=== PATIENT | male | born 1970 | race Caucasian/White ===

== ENCOUNTER 2019-10-19 00:39 | Outpatient (CLI) | payer BC, SELFPAY ==
[2019-10-19 19:34] LABS: SARS-CoV-2 RNA PCR Negative
== END 2019-10-19 00:40 | disposition home or self-care (01) ==
LOC: ANHCOVIDDT 00:40
PROVIDERS: PCP Family Medicine; Visit Provider Orthopaedic Surgery
DX: Z01.812 Encounter for preprocedural laboratory examination (principal); Z11.59 Encounter for screening for other viral diseases
CPT/HCPCS: 87635; C9803; U0003

== ENCOUNTER 2019-10-21 02:22 | Day surgery (SDC) | payer BC, SELFPAY ==
[2019-10-13 11:58] VITALS: BMI 37.5
--- NOTE | 2019-10-16 14:20 | PM.IMHP ---
H&P: HPI History of Present Illness Date/Time: 10/16/19 14:20 Chief complaint: Left Medial Meniscus Tear Narrative: Luann Verde is a 49 year old male Who presents with left knee pain chronic in nature. The patient has pain with twisting or turning squatting kneeling going up and down stairs. He can not stand or walk for long periods. Patient reports occasional mechanical symptoms aching and pain medially worse with activity somewhat relieved by rest. States he does get some swelling and puffiness in the left knee. Despite cortisone therapy and anti-inflammatories as symptoms continue. An MRI scan that was done was initially read as negative however Dr. Kim reviewed the MRI and discussed this in detail with the radiologist and they agree that the patient does have a medial meniscal tear. The only other significant finding is a tiny knee joint effusion and mild lateral patellar tilt. At this point the patient's discuss further treatment options in detail with Dr. Kim he has failed a long course of conservative measures he would now like to proceed with knee arthroscopy. Review of Systems Review of Systems: All systems reviewed & are unremarkable except as noted in HPI and below PMFSH Social History Social History Smoking status: Never smoker Alcohol intake: former Substance use: never Gender identity (if verbalized by the patient): Male Spiritual care concerns: No Meds Home Medications and Allergies Home Medications Medication Instructions Recorded Confirmed Type atorvastatin 20 mg PO DAILY 10/13/19 10/13/19 History omega 4-xeq-afy-fish oil [Fish Oil] 1 cap PO BID 10/13/19 10/13/19 History phentermine 30 mg PO DAILY 10/13/19 10/13/19 History Allergies Allergy/AdvReac Type Severity Reaction Status Date / Time Penicillins Allergy Hives Verified 10/13/19 11:59 Exam Narrative: Exam Narrative: The patient is noted be a well-developed well-nourished male no acute distress. He is alert and oriented x3. Normal mood and affect. Hearing and vision intact. HEENT exam within normal limits. Heart regular rate rhythm. Lungs clear auscultation. Abdomen benign. Extremities showed the patient's left knee to be painful with manipulation range of motion. He has tenderness on the medial joint line with a positive Nisa exam negative Leatha knee joint is otherwise stable strength is 5/5. There is mild knee joint effusion. Full range of motion pain with extremes of motion is noted. Neurovascular is intact. Skin is intact. MRI scan is as above. Central nervous system exam within normal limits. Assessment and Plan Additional Plan by MRI and exam the patient is noted to have a medial meniscal tear left knee. The patient has discussed risks benefits limitations and alternatives to surgery in great detail with Dr. Kim he is now ready to proceed with a left knee arthroscopy partial medial meniscectomy proceed as indicated. the patient is scheduled to go surgery 10/21/[address] [facility] Dr. Kim. The patient voiced understanding and agrees with the above plan.
[2019-10-21] VITALS (8 sets, daily range): BP systolic 111–135; BP diastolic 65–90; PULSE 73–96; RESP 14–20; TEMP 36.1–36.4; O2SAT 94–100
[2019-10-21] MEDS: KETOROLAC 15 MG/ML VIAL (*BKC) IV PUSH (07:53)
[2019-10-21] MEDS: ACETAMINOPHEN 500 MG TABLET 1000 MG PO (07:53)
--- NOTE | 2019-10-21 07:54 | WPDHPUPDATE1 ---
History and Physical Update Update Date/Time: 10/21/19 07:54 History and Physical has been reviewed, including an updated exam of the patient. There are NO changes in the patient's condition. Risks, benefits, and alternatives have been discussed and questions answered. Patient agrees to proceed with procedure.
[2019-10-21] MEDS: LACTATED RINGERS 1,000 ML 30 ML IV CONT ×2 (08:00→11:30)
--- NOTE | 2019-10-21 08:05 | WPDANESEPPF ---
Anes - Initial Pre Proc Eval Procedure: Operation Date: 10/21/19 09:30 Proposed Procedures p Left Knee Arthroscopy, Partial Medial Meniscectomy, Proceed As Indicated - Zia Kim MD Date/Time: 10/21/19 08:05 Surgeon: Zia Kim MD Pre Op Diagnosis: Left Medial Meniscus Tear Patient Data Age: 49 Gender: M Height: 5 ft 7 in Weight: 108.86 kg Allergies Allergy/AdvReac Type Severity Reaction Status Date / Time Penicillins Allergy Hives Verified 10/13/19 11:59 Home Medications Medication Instructions Recorded Confirmed Type atorvastatin 20 mg PO DAILY 10/13/19 10/13/19 History omega 0-ofo-nlk-fish oil [Fish Oil] 1 cap PO BID 10/13/19 10/13/19 History phentermine 30 mg PO DAILY 10/13/19 10/13/19 History hydrocodone-acetaminophen [[place]] 1 tablet PO Q6H PRN #40 tablet 10/21/19 Rx Patient hx anesthesia problems: none Family hx anesthesia problems: none PMFSH Past Medical History Medical History Hyperlipidemia TRACEY (obstructive sleep apnea) Social History Social History Smoking status: Never smoker Alcohol intake: former Substance use: never Gender identity (if verbalized by the patient): Male Spiritual care concerns: No Anes - Eval Final PreProcedure Day of Procedure 10/21/19 08:05 Patient weight: obese Heart: regular rate and rhythm Lungs: clear to auscultation Airway: Mallampati scale class II Neurological: alert and oriented Last oral intake: >/= 8 hours ASA classification: III Emergent: no Anesthetic plan: proceed Anesthesia type and monitoring: general LMA and standard monitoring Informed Consent: The patient's anesthetic plan and its attendant risks and benefits were discussed with the patient/family/POA. Questions were solicited and answers provided to the satisfaction of the patient/family/POA.
[2019-10-21] MEDS: CLINDAMYCIN 900 MG/NS 50 ML 900 MG/50 ML PIGGYBACK 50 MG IVPB (09:09)
[2019-10-21] MEDS: LIDO 1%/EPINEPHRINE 1:100,000 20 ML VIAL INFILTRATE (09:26)
--- NOTE | 2019-10-21 09:44 | PM.PROC ---
Procedure Note - Detailed Date of procedure: 10/21/19 Pre-op diagnosis: Left Medial Meniscus Tear Post-op diagnosis: same Procedure performed: [Left] knee arthroscopy with partial meniscetomy Description of procedure: Patient brought to the operating room and anesthetic was administered. The knee was steriley prepped and drapped in the usual manner. Standard portals were used. Superior medial portal was used for the outflow cannula, inferior lateral portal was used for the scope, inferior medial portal was used for the instruments. Arthroscopy was performed, the patellar femoral joint degenerative changes. The medial compartment showed a complex tear. The lateral compartment showed fraying. The ACL was intact. Using baskets and kamar the meniscal tear was trimmed back to a stable base so the nothing further could be pulled into the joint. Any loose or delaminated fragments were gently trimmed to a stable base. At this point the instruments were withdrawn, sutures placed and patient left the operating room in satisfactory condition. Plica Debrided too Anesthesia: GETA Surgeon: Zia Kim MD Estimated blood loss (mL): 20 Drains: No Packing: No Pathology: none sent Complications: No immediate complications Condition: stable Disposition: PACU
--- NOTE | 2019-10-21 12:24 | SUR.PHASEI ---
RN answered the phone in outpatient this afternoon. Patient stated, I just got my prescription filled at [facility] in [place], [place]. My insurance would only fill 28 pills not the 40 prescribed. RN took patient's name and phone number and will let Dr. Kim's office know when they reopen after lunch. RN contacted patient again and told him the plan but that chances are he would have to use what he got first and call Dr. Kim's office if he runs out of medication and needs more.
== END 2019-10-21 11:45 | disposition home or self-care (01) ==
PROVIDERS: PCP Family Medicine; Visit Provider Orthopaedic Surgery
PROC: (CPT 29870; principal; 2019-10-21 09:30)
DX: S83.232A Complex tear of medial meniscus, current injury, left knee, initial encounter (principal); E78.5 Hyperlipidemia, unspecified; G47.33 Obstructive sleep apnea (adult) (pediatric); Z79.899 Other long term (current) drug therapy; X58.XXXA Exposure to other specified factors, initial encounter
CPT/HCPCS: 29881; A9270; J1100; J1170; J1885; J2250; J2405; J2704; J3010; J7120